=== PATIENT | male | born 1985 | race Caucasian/White ===

== ENCOUNTER 2021-03-14 04:05 | Emergency (ER) | payer BC ==
[~2021-03-14] VITALS: Ht 182.9 cm; Wt 138.3 kg
[2021-03-14 04:15] VITALS: BP 190/68
--- NOTE | 2021-03-14 04:15 | NUR ---
TO BED AMBULATORY
--- NOTE | 2021-03-14 04:15 | NUR ---
RECEIVED IN BED 8 WITH C/O NAUSEA AND VOMITING AFTER DRINKING FOR 5 DAYS IN A ROW. NO DRINKING ALCOHOL FOR PAST 2 DAYS. PT STATES HE HAD BEEN SOBER FOR 4 YEARS PRIOR TO THIS. IS AWAKE AND ALERT. RESPIRATIONS ARE REGULAR AND UNLABORED
[2021-03-14] MEDS ORDERED: NACL 0.9% 1,000 ML IV ONE (04:45)
[2021-03-14] MEDS ORDERED: METOCLOPRAMIDE 10 MG/2 ML INJ VIAL IVP ONE (04:45)
[2021-03-14 06:40] VITALS: BP 156/72
--- NOTE | 2021-03-14 06:40 | NUR ---
Patient discharged with v/s stable. Written and verbal after care instructions given and explained. Patient verbalized understanding. Ambulatory with steady gait. All questions addressed prior to discharge. Advised to follow up with PMD.
[2021-03-15] MEDS ORDERED: METO-486 PO (23:22)
== END 2021-03-14 06:40 | disposition home or self-care (01) ==
LOC: MED 04:05
DX: E86.0 Dehydration (principal); R11.2 Nausea with vomiting, unspecified; R06.6 Hiccough
CPT/HCPCS: 96361; 96374; 99283; J2765; J7030

== ENCOUNTER 2021-03-15 23:06 | Emergency (ER) | payer BC ==
[~2021-03-15] VITALS: Ht 182.9 cm; Wt 136.1 kg
[2021-03-15 23:20] VITALS: BP 151/97
--- NOTE | 2021-03-15 23:20 | NUR ---
TO BED AMBULATORY
[2021-03-15] MEDS ORDERED: METO-486 PO (23:22)
[2021-03-15 23:32] VITALS: BP 151/97
--- NOTE | 2021-03-15 23:32 | NUR ---
Patient discharged with v/s stable. Written and verbal after care instructions given and explained. Patient alert, oriented and verbalized understanding of instructions. Ambulatory with steady gait. All questions addressed prior to discharge. ID band removed. Patient advised to follow up with PMD. Rx of Reglan given. Patient educated on indication of medication including possible reaction and side effects. Opportunity to ask questions provided and answered. A/OX4, VSS, AMBULATORY, UNLABORED BREATHING, AND CALM DEMEANOR. pt seen by ER MD, no nursing inteventions needed.
== END 2021-03-15 23:32 | disposition home or self-care (01) ==
LOC: MED 23:06
DX: R06.6 Hiccough (principal); E86.0 Dehydration; Z79.899 Other long term (current) drug therapy
CPT/HCPCS: 99283

== ENCOUNTER 2021-10-01 00:15 | Emergency (ER) | payer BC ==
[~2021-10-01] VITALS: Ht 182.9 cm; Wt 131.5 kg
[~2021-10-01 00:15] MED LIST: METO-486 PO
[2021-10-01 00:23] VITALS: BP 145/85
[2021-10-01] MEDS ORDERED: METOCLOPRAMIDE 10 MG TAB PO ONE (01:25)
[2021-10-01] MEDS ORDERED: METO-486 PO ×2 (01:27→01:28)
[2021-10-01 01:38] VITALS: BP 130/80
== END 2021-10-01 01:39 | disposition home or self-care (01) ==
LOC: MED 00:15
DX: J01.90 Acute sinusitis, unspecified (principal); R03.0 Elevated blood-pressure reading, without diagnosis of hypertension; R06.6 Hiccough; Z76.0 Encounter for issue of repeat prescription; Z79.899 Other long term (current) drug therapy
CPT/HCPCS: 99281; J8597

== ENCOUNTER 2022-02-25 10:18 | Emergency (ER) | payer BC ==
[~2022-02-25] VITALS: Ht 182.9 cm; Wt 136.1 kg
[2022-02-25 10:24] VITALS: BP 132/86
--- NOTE | 2022-02-25 10:30 | NUR ---
36/M WALKED IN C/O RIGHT EAR PAIN AND RINGING ONSET 1 DAY ACCOMPANIED BY MUFFLED SOUNDS. 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 DENIES ANY FOREIGN OBJECT OR TRAUMA TO EAR. AAO4, AMBULATORY, VITALS STABLE, NO ACUTE DISTRESS NOTED PMH: DENIES
[2022-02-25] MEDS ORDERED: MECL-303 PO (12:01)
[2022-02-25] MEDS ORDERED: LORA-1447 PO (12:01)
--- NOTE | 2022-02-25 12:13 | NUR ---
Patient discharged with v/s stable. Written and verbal after care instructions about vertigo and tinnitus given and explained. Patient alert, oriented and verbalized understanding of instructions. Ambulatory with steady gait. All questions addressed prior to discharge. ID band removed. Patient advised to follow up with PMD. Rx of loratadine and antivert given. Patient educated on indication of medication including possible reaction and side effects. Opportunity to ask questions provided and answered.
== END 2022-02-25 12:13 | disposition home or self-care (01) ==
LOC: MED 10:18
DX: H81.311 Aural vertigo, right ear (principal)
CPT/HCPCS: 99282